=== PATIENT | female | born 1975 | race Caucasian/White ===

== ENCOUNTER 2023-07-17 13:12 | Outpatient (REF) | payer BC, SELFPAY ==
--- NOTE | ~2023-07-17 | XR_ITS ---
EXAMINATION: XR CERVICAL SPINE CLINICAL INFORMATION: Cervical spondylosis. COMPARISON: None available. TECHNIQUE: 3 views of the cervical spine were obtained. FINDINGS: Straightening of the normal cervical lordosis with slight reversal. XR/XR cervical spine 3V IMPRESSION: Slight reversal of the normal cervical lordosis. Mild multilevel cervical spondylosis. Cervical disc space heights are preserved.
[2023-07-17 14:47] LABS: Blood Urea Nitrogen 14 mg/dL (9-16); Estimated Glomerular Filt Rate > 60
== END 2023-07-17 13:13 | disposition home or self-care (01) ==
LOC: HO.LAB 13:12
PROVIDERS: PCP Internal Medicine; Visit Provider Psychiatry & Neurology Neurology
DX: G43.909 Migraine, unspecified, not intractable, without status migrainosus (principal)
CPT/HCPCS: 36415; 72040; 82565; 84520

== ENCOUNTER 2023-09-11 07:38 | Outpatient (REF) | payer BC, SELFPAY ==
--- NOTE | ~2023-09-11 | CT_ITS ---
EXAMINATION: CT ANGIOGRAM OF THE HEAD CT ANGIOGRAM OF THE NECK CLINICAL INFORMATION: Fibromuscular dysplasia. COMPARISON: MRI scan of the brain and MRA of the head 04/14/2020. TECHNIQUE: A noncontrast CT scan of the head was obtained. Test bolus series followed by intravenous administration 70 mL of Omnipaque 350. Helical imaging was performed in the axial plane from the mediastinum to the skull vertex. The degree of stenosis is based off NASCET criteria. The data was processed at the geospatial technologist workstation for generation of MIP images. Three-dimensional volume rendered reformatted images were also generated at an offline 3-D workstation. This CT examination was performed using dose optimization techniques as appropriate, variously including the following: *Automated exposure control *Adjustment of mA and/or kV according to patient size (this includes techniques or standardized protocols for targeted exams where dose is matched to indication/reason for exam; i.e. extremities or head) *Use of iterative reconstruction technique DLP: 2193 mGy-cm. FINDINGS: CT Head: There is no evidence of acute intracranial hemorrhage or territorial infarction. No abnormal mass-effect or midline shift is seen. Lindsey to white matter differentiation is well preserved. No extra-axial fluid collections are identified. There is no abnormal enhancement. The ventricles are normal in size. There is no abnormal attenuation within the brain parenchyma. There are no acute osseous or soft tissue abnormalities. There is hyperostosis frontalis interna. There are mild arthropathic changes of the bilateral temporomandibular joints. The mastoid air cells and visualized portions of the paranasal sinuses are well-aerated. CTA Neck: There is a classic configuration of the arch of the aorta. The great vessels of the neck are widely patent. The subclavian arteries appear normal bilaterally. The common carotid arteries have normal caliber. The carotid bifurcations bilaterally appear normal. Both cervical internal carotid arteries have beaded morphology, which may be consistent with sequelae of fibromuscular dysplasia. The caliber of the right cervical internal carotid artery is uniformly thinner compared to the right, but no focal occlusions are demonstrated. The origins of both vertebral arteries are well seen and appear normal. Both vertebral arteries are widely patent and demonstrate good opacification throughout their cervical course. The right vertebral artery is slightly dominant. Nonvascular: The visualized upper lung bee are well-aerated the thyroid gland is normal in size. There is no cervical lymphadenopathy. There is mild prominence of the bilateral palatine tonsils. There is reversal of the cervical lordosis which is nonspecific. There are no acute fractures or subluxations. CTA Head: The right cavernous internal carotid artery has diffusely thinner caliber compared to the right, but the vessel is patent. There is mild fullness of the infundibula of the bilateral ophthalmic arteries. The A1 segment of the right anterior cerebral artery is uniformly thin, likely congenital. The A1 segment of the left anterior cerebral artery and the bilateral A2 segments are well opacified with uniform caliber. The middle cerebral arteries bilaterally demonstrate normal caliber with no evidence of focal stenosis, aneurysm or vascular malformation. There is normal arborization of the middle cerebral artery branches. The anterior communicating artery is normal. In the posterior circulation, the right vertebral artery is dominant. The vertebral arteries intradurally have uniform caliber. The basilar artery appears normal. The posterior cerebral arteries have normal caliber. The venous sinuses opacify normally. CT/CT angio head neck IMPRESSION: CT Head and Neck: 1. There are no acute bleeds or territorial infarcts. 2. There are no masses or areas of abnormal enhancement. 3. There is reversal of the cervical lordosis which is nonspecific. CTA Head and Neck: 1. Both cervical internal carotid arteries have beaded morphology, which may be consistent with sequelae of fibromuscular dysplasia. The caliber of the right cervical internal carotid artery is uniformly thinner compared to the left, but the vessel is patent. 2. The right cavernous internal carotid artery has diffusely thinner caliber compared to the right, but the vessel is patent. 3. The A1 segment of the right anterior cerebral artery is uniformly thin, likely congenital. 4. There are no focal stenoses, aneurysms or vascular malformations.
[2023-09-11] MEDS: iohexoL 350 MG/ML 75 ML INFUS..BTL 70 ML IV (09:06)
== END 2023-09-11 07:39 | disposition home or self-care (01) ==
LOC: HO.CT 07:38
PROVIDERS: PCP Internal Medicine; Visit Provider Psychiatry & Neurology Neurology
DX: I77.3 Arterial fibromuscular dysplasia (principal)
CPT/HCPCS: 70496; 70498; Q9967

== ENCOUNTER 2024-04-10 10:05 | Outpatient (AMB) | payer BC, SELFPAY ==
--- NOTE | 2024-04-10 10:10 | MHC.OFFVIS ---
Vital Signs 04/10/24 10:17 Height 5 ft 4 in Weight 166 lb 8 oz BMI 28.6 BP 136/89 Blood Pressure Location Rt brachial Position Sitting Pulse 72 Pulse Source Pulse Oximeter Pulse Oximetry (%) 100 Oxygen Delivery Method Room Air Intake Visit Reasons: Low Back Pain Intake Note: Pain today 0/10 I[facility] Registered Nurse Required: No Accompanied by: Self / Same As Patient Allergies ibuprofen Adverse Reaction (Unknown, Verified 04/10/24 10:15) Unknown HPI HPI Low Back Pain: Details: Patient is a very pleasant 48-year-old female is history of chronic low back pain, moderate degenerative changes at L5-S1, history of left ovarian cyst, anxiety and depression, cervical muscle pain, fibromuscular dysplasia, lung nodules, migraine headaches, pulmonary embolism, splenic artery aneurysm, carotid and renal stenosis, presents today for initial evaluation of low back pain with bilateral radiculopathy in L5-S1 distribution, worse on the left. Denies any recent trauma, injury or falls. 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 She reports intractable, debilitating pain a month ago which prompted her to seek evaluation at Urgent Care. She avoids NSAIDs due to carotid and renal bilateral stenosis. Patient completed physical therapy at [facility] about 1 year ago is minimal function and pain improvement. She reports unable getting up normally from her bed and has to roll out from the bed. Patient reports she has to manually support her self when getting up from a bending position due to pain and losing balance. Pain affects her daily activities and functioning, work, sleep, mood, and social interactions. Pain is rated at 0/10 rest/sitting, 6-10/10 walking, bending, standing, sleeping supine. Denies any fever, chills, abdominal or groin pain, footdrop, bladder or bowel dysfunction or saddle anesthesia. Location: Lower back pain radiates into BLE posteriorly with numbness/tingling, L>R Duration: Chronic pain for many years, worsening for past one year Characteristics of symptom or complaint: Aching, shooting, stabbing, sore, sharp, dull, sore, heavy, radiating Aggravating or associated factors: Heat, movements, supine position, standing, bending, prolonged sitting Relieving factors: Rest, cold/ice packs, muscle relaxants, topical applications Treatment: PT at [facility] in 2022, TENS, massages, chiropractic therapy [facility] Medical History (Updated 04/10/24 @ 10:48 by JAMES Chirinos) Cervical muscle pain Hemorrhoids Splenic artery aneurysm Pulmonary embolism Migraine Lung nodules Hyperthyroidism Hypertension Fibromuscular dysplasia Cervical muscle strain Anxiety Social History (Updated 04/10/24 @ 10:27 by Wendy Macias) Alcohol intake: current Alcohol intake frequency: holidays/special occasions only Review of Systems Const All systems reviewed & are unremarkable except as noted in HPI and below Physical Exam Vital Signs: Last Vital Signs Pulse 72 04/10/24 10:17 BP 136/89 04/10/24 10:17 Pulse Ox 100 04/10/24 10:17 Oxygen Delivery Method Room Air 04/10/24 10:17 BMI result Body Mass Index 28.6 General: Appears afebrile. Alert and oriented. Mood and affect appropriate. Follows and participates in conversation appropriately. Respiratory effort is unlabored. No cough. Able to transition from sit to stand unassisted. Ambulates with bilaterally normal heel strike and toe off. Reports imbalance after bending down or flexing forward. Neck Neck: Yes normal visual inspection, Yes full ROM, Yes no lymphadenopathy, No anterior neck swelling, Yes no JVD and No prominent dorsocervical fat pad General: Yes no CVA tenderness Back/Spine/Pelvis Other: Patient is able to walk and stand on heels and tip toes with no difficulties demonstrating good motor tone. No limping. Can flex forward to 60-65 degrees and extend to 5-10 degrees before experiencing lumbar pain. Demonstrates 5/5 strength of quadriceps bilaterally as well as flexion/dorsiflexion of bilateral feet against resistance. 2+ pedal pulses bilaterally. Seated straight leg rise with dorsiflexion positive bilaterally. +2 patellar and achilles reflexes bilaterally. Facet loading test positive bilaterally. Debora sign, Zack?s, Gaenslen, Pelvic compression and Stinchfield tests are positive on the left. No groin pain with I/E hip rotations. Valsalva maneuver negative. Back: no CVA tenderness Cervical Spine: cervical ROM normal, cervical muscular tenderness, pain with cervical ROM and No Cervical spine tenderness Thoracic/Lumbar Spine: thoracic and lumbar spine normal to inspection, No Thoracic/lumbar spine scar(s), Lasegue's sign positive bilateral and diffuse, pain with thoraco-lumbar ROM, paraspinal muscle tenderness, thoraco-lumbar ROM limited, No thoracic spinal tenderness and lumbar spinal tenderness (L4-S1) Pelvis: buttock tenderness on the left Sacroiliac joints: on the right nontender and on the left tender to palpation Extrem General: Yes capillary refill normal, Yes no clubbing, cyanosis or edema and Yes no calf tenderness Results Reviewed Results Reviewed: MR LUMBAR SPINE WITHOUT CONTRAST 12/07/19 HISTORY: 44-year-old with low back pain worsening with lumbar radicular symptoms. FINDINGS: Coronal alignment: Normal. Sagittal alignment: Normal. Lumbosacral junction: Normal. Vertebral bodies: Normal height. Bone marrow: Small benign vertebral hemangioma noted in the L4 vertebral body. Small benign vertebral hemangioma within the left L4 pedicle. Type I marrow signal changes along the endplates at L5-S1. Conus medullaris: Terminates at L1. Morphology & signal is normal. Intradural nerve roots: Normal. L5-S1: [id number] disc space narrowing is noted with mild disc desiccation, with type I marrow signal changes along the endplates. Mild central disc herniation is noted without thecal sac or neural impingement. No significant spondylosis, facet arthrosis, canal or neural foraminal stenosis. L4-5: Disc space height is well-maintained with disc desiccation consistent with disc degenerative change. Mild disc bulging is noted with a tiny central annular fissure without significant spondylosis, facet arthrosis, canal or neural foraminal stenosis. L3-4: Disc space height and signal well maintained without significant disc bulge or herniation and no significant spondylosis, facet arthrosis, canal or neural foraminal stenosis. L2-3: Disc space height and signal well maintained without significant disc bulge or herniation and no significant spondylosis, facet arthrosis, canal or neural foraminal stenosis. L1-2: Disc space height and signal well maintained without significant disc bulge or herniation and no significant spondylosis, facet arthrosis, canal or neural foraminal stenosis. Paraspinal/Retroperitoneal: The visualized paravertebral soft tissues appear unremarkable. IMPRESSION: Discogenic degenerative changes at L4-5 and L5-S1 with a small central disc herniation at L5-S1 and mild disc bulging at L4-5 with a tiny central annular fissure. No significant spinal stenosis or neural impingement. Assessment & Plan Assessment & Plan (1) Fibromuscular dysplasia: Code(s): I77.3 - Arterial fibromuscular dysplasia Category: Medical (2) Lumbar radiculopathy: Code(s): M54.16 - Radiculopathy, lumbar region Category: Medical (3) Discogenic low back pain: Code(s): M51.36 - Other intervertebral disc degeneration, lumbar region Category: Medical (4) Lumbar degenerative disc disease: Code(s): M51.36 - Other intervertebral disc degeneration, lumbar region Category: Medical (5) Lumbar spondylosis: Code(s): M47.816 - Spondylosis without myelopathy or radiculopathy, lumbar region Category: Medical (6) Muscle spasm of back: Code(s): M62.830 - Muscle spasm of back Category: Medical Plan Lumbar spine imaging to assess degree of degenerative changes, any subluxation, listhesis, compression fractures or pars defects. MRI of the lumbar spine to assess for neural integrity and compression and follow up on previous MRI findings. Discussed interventional treatments axial, discogenic and radicular low back pain, including diagnostic and therapeutic injections, neuromodulation, RFA and BVN ablation procedures. Informational pamphlets provided to patient today. Script provided for lidocaine patches per patient request. Continue home exercise program as tolerated, good posture, adequate hydration, well-balanced diet and weight optimization. All questions and concerns have been answered and patient agreed with the treatment plan. Patient will return to the clinic to discuss results of the MRI/xray findings when it is done and consider interventional therapy as indicated. Orders: Orders MR lumbar spine wo con Today I77.3 - Arterial fibromuscular dysplasia, M47.816 - Spondylosis without myelopathy or radiculopathy, lumbar region, M51.36 - Other intervertebral disc degeneration, lumbar region, M54.16 - Radiculopathy, lumbar region XR lumbar spine 4V min Today M47.816 - Spondylosis without myelopathy or radiculopathy, lumbar region, M51.36 - Other intervertebral disc degeneration, lumbar region, M54.16 - Radiculopathy, lumbar region Medications: New lidocaine 5% 1 patch topical DAILY 30 days 30 ea 0RF pain M47.816 - Spondylosis without myelopathy or radiculopathy, lumbar region, M51.36 - Other intervertebral disc degeneration, lumbar region, M62.830 - Muscle spasm of back Coding Level of Care Code New Pt Level 4 (47287) Complex EM visit Add On G2211 Diagnoses Fibromuscular dysplasia I77.3 Lumbar radiculopathy M54.16 Discogenic low back pain M51.36 Lumbar degenerative disc disease M51.36 Lumbar spondylosis M47.816 Muscle spasm of back M62.830
[2024-04-10 10:17] VITALS: BP 136/89; PULSE 72; O2SAT 100; BMI 28.6
== END 2024-04-10 10:50 | disposition home or self-care (01) ==
PROVIDERS: PCP Internal Medicine; Referring Provider Nurse Practitioner Family; Visit Provider Nurse Practitioner Family
DX: I77.3 Arterial fibromuscular dysplasia (principal); M54.16 Radiculopathy, lumbar region; M51.36 Other intervertebral disc degeneration, lumbar region; M47.816 Spondylosis without myelopathy or radiculopathy, lumbar region; M62.830 Muscle spasm of back
CPT/HCPCS: 99204

== ENCOUNTER → 2024-04-10 10:05 | Outpatient (BNVA) | payer BC, SELFPAY | PROVIDERS: PCP Internal Medicine; Referring Provider Nurse Practitioner Family; Visit Provider Nurse Practitioner Family ==

== ENCOUNTER 2024-05-15 13:17 | Outpatient (AMB) | payer BC, SELFPAY ==
--- NOTE | 2024-05-15 13:39 | A.OFFVIS_ITS ---
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 Patient also reports increasing lower back pain with coughing and recent flare-up of discogenic and radicular low back pain while having dental procedure for herself which required elevation of lower extremities to alleviate her symptoms. Denies any recent cough, cold, infection, fever, bladder or bowel dysfunction, saddle anesthesia or other significant changes in medical history since last office visit. PRIOR: Patient is a very pleasant 48-year-old female is history of chronic low back pain, moderate degenerative changes at L5-S1, history of left ovarian cyst, anxiety and depression, cervical muscle pain, fibromuscular dysplasia, lung nodules, migraine headaches, pulmonary embolism, splenic artery aneurysm, carotid and renal stenosis, presents today for initial evaluation of low back pain with bilateral radiculopathy in L5-S1 distribution, worse on the left. Denies any recent trauma, injury or falls. 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 She reports intractable, debilitating pain a month ago which prompted her to seek evaluation at Urgent Care. She avoids NSAIDs due to carotid and renal bilateral stenosis. Patient completed physical therapy at [facility] about 1 year ago is minimal function and pain improvement. She reports unable getting up normally from her bed and has to roll out from the bed. Patient reports she has to manually support her self when getting up from a bending position due to pain and losing balance. Pain affects her daily activities and functioning, work, sleep, mood, and social interactions. Pain is rated at 0/10 rest/sitting, 6-10/10 walking, bending, standing, sleeping supine. Denies any fever, chills, abdominal or groin pain, footdrop, bladder or bowel dysfunction or saddle anesthesia. Location: Lower back pain radiates into BLE posteriorly with numbness/tingling, L>R Duration: Chronic pain for many years, worsening for past one year Characteristics of symptom or complaint: Aching, shooting, stabbing, sore, s harp, dull, sore, heavy, radiating Aggravating or associated factors: Heat, movements, supine position, standing, bending, prolonged sitting Relieving factors: Rest, cold/ice packs, muscle relaxants, topical applications Treatment: PT at [facility] in 2022, TENS, massages, chiropractic therapy [facility] Medical History Cervical muscle pain Hemorrhoids Splenic artery aneurysm Pulmonary embolism Migraine Lung nodules Hyperthyroidism Hypertension Fibromuscular dysplasia Cervical muscle strain Anxiety Social History Alcohol intake: current Alcohol intake frequency: holidays/special occasions only Review of Systems Const All systems reviewed & are unremarkable except as noted in HPI and below Physical Exam Vital Signs: Last Vital Signs Pulse 74 05/15/24 13:43 BP 130/73 05/15/24 13:43 Pulse Ox 100 05/15/24 13:43 Oxygen Delivery Method Room Air 05/15/24 13:43 BMI result Body Mass Index 28.5 General: Appears afebrile. Alert and oriented. Mood and affect appropriate. Follows and participates in conversation appropriately. Respiratory effort is unlabored. No cough. Able to transition from sit to stand unassisted. Ambulates with bilaterally normal heel strike and toe off. Reports imbalance after bending down or flexing forward. Neck Neck: Yes normal visual inspection, Yes full ROM, Yes no lymphadenopathy, No anterior neck swelling, Yes no JVD and No prominent dorsocervical fat pad General: Yes no CVA tenderness Back/Spine/Pelvis Other: Patient is able to walk and stand on heels and tip toes with no difficulties demonstrating good motor tone. No limping. Can flex forward to 60-65 degrees and extend to 5-10 degrees before experiencing lumbar pain. Demonstrates 5/5 right and 4.5 left strength of quadriceps bilaterally as well as flexion/dorsiflexion of bilateral feet against resistance. 2+ pedal pulses bilaterally. Seated straight leg rise with dorsiflexion positive bilaterally. +1 patellar and achilles reflexes bilaterally. Facet loading test positive bilaterally. Debora sign, Zack?s, Gaenslen, Pelvic compression and Stinchfield tests are positive on the left. No groin pain with I/E hip rotations. Valsalva maneuver is positive. Back: no CVA tenderness Cervical Spine: loss of normal cervical lordosis, cervical muscular tenderness, pain with cervical ROM, No Cervical spine tenderness and No step off deformity Thoracic/Lumbar Spine: thoracic and lumbar spine normal to inspection, No Thoracic/lumbar spine scar(s), Lasegue's sign positive bilateral and diffuse, pain with thoraco-lumbar ROM, paraspinal muscle tenderness, thoraco-lumbar ROM limited, No thoracic spinal tenderness and lumbar spinal tenderness (L4-S1) Pelvis: buttock tenderness on the left Sacroiliac joints: on the right nontender and on the left tender to palpation Extrem General: Yes capillary refill normal, Yes no clubbing, cyanosis or edema and Yes no calf tenderness Results Reviewed Results Reviewed: MR SPINE LUMBAR without CONTRAST 04/23/24 INDICATION: Lumbar radiculopathy. Low back pain radiating into left side for 3 years. TECHNIQUE: Unenhanced multiplanar, multisequence MR imaging of the lumbar spine. COMPARISON: MR lumbar 12/07/2019. FINDINGS: Normal lumbar alignment is demonstrated. Vertebral heights are well maintained. Bone marrow signal is within normal limits, and no suspicious osseous lesion is identified. Conus medullaris is unremarkable. Paraspinal soft tissues and visualized portions of the abdomen and pelvis are unremarkable. At L1-2 there is no significant disc herniation or protrusion. No central canal or neural foraminal stenosis is demonstrated. At L2-3 there is no significant disc herniation or protrusion. No central canal or neural foraminal stenosis is demonstrated. At L3-4 there is no significant disc herniation or protrusion. No central canal or neural foraminal stenosis is demonstrated. At L4-5 there is a small broad-based disc bulge. No central canal or neural foraminal stenosis is demonstrated. At L5-S1 there is a small broad-based disc bulge. No central canal or neural foraminal stenosis is demonstrated. IMPRESSION: At L4-5 and L5-S1, there are small broad-based disc bulges. There is no significant central canal stenosis or nerve root compromise at these or at any level. Assessment & Plan Assessment & Plan (1) Fibromuscular dysplasia: Code(s): I77.3 - Arterial fibromuscular dysplasia Category: Medical (2) Lumbar radiculopathy: Code(s): M54.16 - Radiculopathy, lumbar region Category: Medical (3) Discogenic low back pain: Code(s): M51.36 - Other intervertebral disc degeneration, lumbar region Category: Medical (4) Lumbar degenerative disc disease: Code(s): M51.36 - Other intervertebral disc degeneration, lumbar region Category: Medical (5) Lumbar spondylosis: Code(s): M47.816 - Spondylosis without myelopathy or radiculopathy, lumbar region Category: Medical (6) Muscle spasm of back: Code(s): M62.830 - Muscle spasm of back Category: Medical Plan Lumbar spine MRI imaging results were discussed with patient greater detail zoya olsen. Discussed interventional treatments axial, discogenic and radicular low back pain, including diagnostic and therapeutic injections, neuromodulation and RFA procedures. Informational pamphlets were provided to patient previous visit. Continue home exercise program as tolerated, good posture, adequate hydration, lidocaine patches, Tylenol, NSAIDs prn, well-balanced diet and weight optimizat ion. Schedule Bilateral L5-S1 TFESI injection with local and fluoroscopy to address low back pain with radicular symptoms. Expectations, risks and benefits were reviewed. Patient is aware she will be contacted to schedule this procedure. All questions were answered and the patient is in agreement of plan. Follow-up after injections and sooner as needed. Coding Level of Care Code Est Pt Level 4 (14727) Complex EM visit Add On G2211 Diagnoses Fibromuscular dysplasia I77.3 Lumbar radiculopathy M54.16 Discogenic low back pain M51.36 Lumbar degenerative disc disease M51.36 Lumbar spondylosis M47.816 Muscle spasm of back M62.830
[2024-05-15 13:43] VITALS: BP 130/73; PULSE 74; O2SAT 100; BMI 28.5
== END 2024-05-15 14:05 | disposition home or self-care (01) ==
PROVIDERS: PCP Internal Medicine; Visit Provider Nurse Practitioner Family
DX: I77.3 Arterial fibromuscular dysplasia (principal); M54.16 Radiculopathy, lumbar region; M47.816 Spondylosis without myelopathy or radiculopathy, lumbar region; M62.830 Muscle spasm of back
CPT/HCPCS: 99214

== ENCOUNTER → 2024-05-15 13:17 | Outpatient (BNVA) | payer BC, SELFPAY | PROVIDERS: PCP Internal Medicine; Visit Provider Nurse Practitioner Family ==

== ENCOUNTER 2024-08-14 11:28 | Outpatient (AMB) | payer BC, SELFPAY ==
[2024-08-14 11:28] VITALS: BMI 29.9
--- NOTE | 2024-08-14 11:28 | A.OFFVIS_ITS ---
Vital Signs 08/14/24 11:28 Height 5 ft 4 in Weight 174 lb BMI 29.9 Intake Visit Reasons: requesting work note madalyn 05/2024 Link Cutter Required: No Allergies ibuprofen Adverse Reaction (Unknown, Verified 08/14/24 11:29) Unknown Do you need a note to return to daycare/school/sports/work: Yes Return to daycare/school/sports/work/other note: work HPI Comments Details: Patient presents today via telehealth encounter for acute on chronic low back pain with ongoing radicular symptoms. Reports she twisted her back about one week ago by missing a step and has been having worsening in her pain and reduced functioning. 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 Patient reports she has been taking Tylenol, NSAIDs, alternating heat and cold packs, and modifying her activities. She had to call out from work yesterday and today due to significant pain. Patient continues to endorse axial and radicular symptoms. Patient is scheduled for bilateral L5-S1 TFESI on 08/14/[address] Peres. We will plan for diagnostic lumbar medial branch blocks as next steps to address axial low back pain. Denies any recent cough, cold, infection, fever, bladder or bowel dysfunction, saddle anesthesia or other significant changes in medical history since last office vi sit. PRIOR: Patient is a very pleasant 48-year-old female is history of chronic low back pain, moderate degenerative changes at L5-S1, history of left ovarian cyst, anxiety and depression, cervical muscle pain, fibromuscular dysplasia, lung nodules, migraine headaches, pulmonary embolism, splenic artery aneurysm, carotid and renal stenosis, presents today for initial evaluation of low back pain with bilateral radiculopathy in L5-S1 distribution, worse on the left. Denies any recent trauma, injury or falls. 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 She reports intractable, debilitating pain a month ago which prompted her to seek evaluation at Urgent Care. She avoids NSAIDs due to carotid and renal bilateral stenosis. Patient completed physical therapy at [facility] about 1 year ago is minimal function and pain improvement. She reports unable getting up normally from her bed and has to roll out from the bed. Patient reports she has to manually support her self when getting up from a bending position due to pain and losing balance. Pain affects her daily activities and functioning, work, sleep, mood, and social interactions. Pain is rated at 0/10 rest/sitting, 6-10/10 walking, bending, standing, sleeping supine. Denies any fever, chills, abdominal or groin pain, footdrop, bladder or bowel dysfunction or saddle anesthesia. Location: Lower back pain radiates into BLE posteriorly with numbness/tingling, L>R Duration: Chronic pain for many years, worsening for past one year Characteristics of symptom or complaint: Aching, shooting, stabbing, sore, sharp, dull, sore, heavy, radiating Aggravating or associated factors: Heat, movements, supine position, standing, bending, prolonged sitting Relieving factors: Rest, cold/ice packs, muscle relaxants, topical applications Treatment: PT at [facility] in 2022, TENS, massages, chiropractic therapy PFS Medical History Cervical muscle pain Hemorrhoids Splenic artery aneurysm Pulmonary embolism Migraine Lung nodules Hyperthyroidism Hypertension Fibromuscular dysplasia Cervical muscle strain Anxiety Social History Alcohol intake: current Alcohol intake frequency: holidays/special occasions only Review of Systems Const All systems reviewed & are unremarkable except as noted in HPI and below ENT Reports Normal hearing present Neuro Reports Normal hearing present and Denies confusion Psych Denies confusion Physical Exam Vital Signs: BMI result Body Mass Index 29.9 Const General: cooperative, alert and awake; No confusion Orientation/consciousness: patient oriented x3 and No confusion Resp Effort & Inspection: able to speak in complete sentences, no audible wheezes and no cough Neuro General: patient oriented x3 and No confusion Cranial nerves: Yes Normal hearing present Cognition (Neuro): normal cognition Psych Mental Status: mental status grossly normal Speech and movement: Clear speech present Affect: normal affect Attitude: cooperative Thought process: Normal thought process present Thought content: Normal thought content present and No Depressive thoughts present Insight: Good insight present (Psych) Judgement: Good judgement present (Psych) Telehealth Telehealth Telehealth Platform: Telephone Location of provider rendering services: practice address Location of patient: address on file Patient Identification confirmed using: Name, : Yes Telehealth method: voice only Patient verbally consented to treatment: Yes Patient verbally consented to billing insurance company: Yes Patient informed of any privacy concerns related to visit: Yes Minutes spent on Phone/Video with Pt.: 13 Results Reviewed Results Reviewed: MR SPINE LUMBAR without CONTRAST 04/23/24 INDICATION: Lumbar radiculopathy. Low back pain radiating into left side for 3 years. TECHNIQUE: Unenhanced multiplanar, multisequence MR imaging of the lumbar spine. COMPARISON: MR lumbar 12/07/2019. FINDINGS: Normal lumbar alignment is demonstrated. Vertebral heights are well maintained. Bone marrow signal is within normal limits, and no suspicious osseous lesion is identified. Conus medullaris is unremarkable. Paraspinal soft tissues and visualized portions of the abdomen and pelvis are unremarkable. At L1-2 there is no significant disc herniation or protrusion. No central canal or neural foraminal stenosis is demonstrated. At L2-3 there is no significant disc herniation or protrusion. No central canal or neural foraminal stenosis is demonstrated. At L3-4 there is no significant disc herniation or protrusion. No central canal or neural foraminal stenosis is demonstrated. At L4-5 there is a small broad-based disc bulge. No central canal or neural foraminal stenosis is demonstrated. At L5-S1 there is a small broad-based disc bulge. No central canal or neural foraminal stenosis is demonstrated. IMPRESSION: At L4-5 and L5-S1, there are small broad-based disc bulges. There is no significant central canal stenosis or nerve root compromise at these or at any level. Assessment & Plan Assessment & Plan (1) Fibromuscular dysplasia: Code(s): I77.3 - Arterial fibromuscular dysplasia Category: Medical (2) Lumbar radiculopathy: Code(s): M54.16 - Radiculopathy, lumbar region Category: Medical (3) Discogenic low back pain: Code(s): M51.36 - Other intervertebral disc degeneration, lumbar region Category: Medical (4) Lumbar degenerative disc disease: Code(s): M51.36 - Other intervertebral disc degeneration, lumbar region Category: Medical (5) Lumbar spondylosis: Code(s): M47.816 - Spondylosis without myelopathy or radiculopathy, lumbar region Category: Medical (6) Muscle spasm of back: Code(s): M62.830 - Muscle spasm of back Category: Medical Plan Proceed with Bilateral L5-S1 TFESI injection with local and fluoroscopy to address low back pain with radicular symptoms as previously planned. This is scheduled for 08/25/24. Reviewed interventional treatments axial, discogenic and radicular low back pain, including diagnostic and therapeutic injections, neuromodulation with Sprint PNS trial and RFA procedures. Patient is not interested in implantable temporary or permanent devices. Continue home exercise program as tolerated, adequate hydration, lidocaine patches, Tylenol, NSAIDs prn, muscle relaxant and activity modifications. Work letter provided today to excuse patient from work 08/13/24-08/14/24. All questions were answered and the patient is in agreement of plan. Follow-up after injections and sooner as needed. I hereby testify that I spent 13 minutes in conversation with this patient as well as with planning and coordinating care for this patient and organizing this note. Coding Level of Care Code Tele Est Pt Level 4 (34892) Complex EM visit Add On G2211 Diagnoses Fibromuscular dysplasia I77.3 Lumbar radiculopathy M54.16 Discogenic low back pain M51.36 Lumbar degenerative disc disease M51.36 Lumbar spondylosis M47.816 Muscle spasm of back M62.830
== END 2024-08-14 11:40 | disposition home or self-care (01) ==
LOC: HO.PMC 11:28
PROVIDERS: PCP Internal Medicine; Visit Provider Nurse Practitioner Family
DX: I77.3 Arterial fibromuscular dysplasia (principal); M54.16 Radiculopathy, lumbar region; M51.369 Other intervertebral disc degeneration, lumbar region without mention of lumbar back pain or lower extremity pain; M47.816 Spondylosis without myelopathy or radiculopathy, lumbar region; M62.830 Muscle spasm of back
CPT/HCPCS: 98967

== ENCOUNTER → 2024-08-14 11:28 | Outpatient (BNVA) | payer BC, SELFPAY | PROVIDERS: PCP Internal Medicine; Visit Provider Nurse Practitioner Family ==

== ENCOUNTER 2024-08-25 06:09 | Outpatient (REF) | payer BC, SELFPAY | END 2024-08-25 06:10 | disposition home or self-care (01) | LOC: CF 06:09 | PROVIDERS: Visit Provider Anesthesiology | DX: Z13.89 Encounter for screening for other disorder (principal) ==

== ENCOUNTER 2024-10-27 06:13 | Outpatient (REF) | payer BC, SELFPAY | END 2024-10-27 06:14 | disposition home or self-care (01) | LOC: CF 06:13 | PROVIDERS: Visit Provider Anesthesiology | DX: Z13.89 Encounter for screening for other disorder (principal) ==